=== PATIENT | male | born 1960 ===

== ENCOUNTER 2020-09-25 13:42 | Outpatient (CLI) | payer OTHER | END 2020-09-25 18:00 | disposition home or self-care (01) | LOC: PPH VACUNA 13:42 → EDBD 13:42 → PPH VACUNA 18:00 | DX: Z23 Encounter for immunization (principal) ==

== ENCOUNTER 2021-07-05 08:00 | Outpatient (CLI) | payer OTHER | END 2021-07-05 08:30 | disposition home or self-care (01) | LOC: PPH VACUNA 08:00 | PROVIDERS: ATTEND Emergency Medicine Pediatric Emergency Medicine | DX: Z23 Encounter for immunization (principal) ==